=== PATIENT | female | born 1980 | race Caucasian/White ===

== ENCOUNTER 2022-09-04 08:56 | Outpatient (CLI) | payer BC | END 2022-09-04 08:57 | disposition home or self-care (01) | LOC: CSHMAMMO 08:56 | PROVIDERS: ATTEND Obstetrics & Gynecology | DX: Z12.31 Encounter for screening mammogram for malignant neoplasm of breast (principal) | CPT/HCPCS: 77063; 77067 ==

== ENCOUNTER 2023-10-15 15:15 | Outpatient (CLI) | payer BC | END 2023-10-15 15:16 | disposition home or self-care (01) | LOC: CSHMAMMO 15:15 | PROVIDERS: ATTEND Obstetrics & Gynecology | DX: Z12.31 Encounter for screening mammogram for malignant neoplasm of breast (principal) | CPT/HCPCS: 77063; 77067 ==

== ENCOUNTER 2024-10-19 08:34 | Outpatient (CLI) | payer BC | END 2024-10-19 08:35 | disposition home or self-care (01) | LOC: CSHMAMMO 08:34 | PROVIDERS: ATTEND Family Medicine | DX: Z12.31 Encounter for screening mammogram for malignant neoplasm of breast (principal) | CPT/HCPCS: 77063; 77067 ==

== ENCOUNTER 2025-06-03 08:29 | Outpatient (CLI) | payer BC | END 2025-06-03 08:30 | disposition home or self-care (01) | LOC: CSHCT 08:29 | PROVIDERS: ATTEND Plastic Surgery | DX: D16.4 Benign neoplasm of bones of skull and face (principal) | CPT/HCPCS: 70486 ==